=== PATIENT | female | born 1960 | race Hispanic/Latino ===

== ENCOUNTER 2021-01-26 03:12 | Emergency (ER) | payer SELFPAY ==
[2021-01-26 03:44] LABS: Absolute Lymphocytes (CBC) 3.2 K/uL (0.7-4.9); Basophils % 0.5 % (0-1.3); Hematocrit 50.2 % (36.0-45.0); Lymphocytes % 24.2 % (15.3-44.8); MPV 10.1 fL (7.6-11.3); RBC Red Blood Cell Count 5.64 M/uL (3.86-4.86)
[2021-01-26 03:47] LABS: Protime INR 0.96
[2021-01-26 04:07] LABS: Albumin 3.7 g/dL (3.4-5.0); Bilirubin Direct 0.1 mg/dL (0-0.2); Bilirubin Total 0.3 mg/dL (0.2-1.0); Potassium 3.5 mmol/L (3.5-5.1); Protein, Total 8.6 g/dL (6.4-8.2)
[2021-01-26] MEDS ORDERED: NA CHLORIDE 0.9% 1,000 ML ONE (07:21)
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
[2021-01-26 08:05] VITALS: TEMP 98.2
[2021-01-26] MEDS ORDERED: metroNIDAZOLE 500 MG TABLET ONE ×2 (08:08→08:12)
[2021-01-26] MEDS ORDERED: CIPROFLOXACIN HCL 500 MG TAB ONE ×2 (08:08→08:12)
[2021-01-26 08:11] VITALS: O2SAT 96
[2021-01-26 08:13] VITALS: BP 111/75
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
--- NOTE | 2021-01-26 08:54 | RAD REPORT ---
EXAM DESCRIPTION: RAD - Hip Right 2 View - 01/26/2021 3:56 am CLINICAL HISTORY: Right hip pain FINDINGS: No fracture or dislocation is seen.
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
== END 2021-01-26 07:55 | disposition home or self-care (01) ==
LOC: ER 03:12
DX: S00.83XA Contusion of other part of head, initial encounter (principal); S70.01XA Contusion of right hip, initial encounter; R10.9 Unspecified abdominal pain; K52.9 Noninfective gastroenteritis and colitis, unspecified; Y04.2XXA Assault by strike against or bumped into by another person, initial encounter; Y92.89 Other specified places as the place of occurrence of the external cause; F17.210 Nicotine dependence, cigarettes, uncomplicated; Z91.041 Radiographic dye allergy status
CPT/HCPCS: 36415; 70450; 71250; 72125; 72170; 80048; 80076; 85025; 85610; 85730; 86850; 86900; 86901; 96360; 99285; G0390; J7030